=== PATIENT | female | born 1950 | race Caucasian/White ===

== ENCOUNTER 2018-05-09 12:36 | Day surgery (SDC) | payer MEDICARE, OTHER, MEDICAID ==
[2018-05-09] MEDS ORDERED: LIDOCAINE 100 MG SYRINGE (13:21)
[2018-05-09] MEDS ORDERED: PROPOFOL 20 ML (13:21)
[2018-05-09] MEDS ORDERED: LIDOCAINE 4% SOLUTION 50 ML BTL (13:32)
== END 2018-05-09 15:38 | disposition home or self-care (01) ==
LOC: GIL 12:36
DX: Z12.11 Encounter for screening for malignant neoplasm of colon (principal); K29.40 Chronic atrophic gastritis without bleeding; Z86.010 Personal history of colon polyps; E78.5 Hyperlipidemia, unspecified; M19.90 Unspecified osteoarthritis, unspecified site
CPT/HCPCS: 43239; 82962; 88305; 88312